=== PATIENT | female | born 1975 | race Caucasian/White ===

== ENCOUNTER 2023-01-29 15:25 | Inpatient (IN) | payer OTHER ==
[~2023-01-29 15:25] MED LIST: Iopamidol-370 76% 500 ML MDV (1 ML CHARGE) ONE
[2023-01-29] MEDS ORDERED: Propofol 1,000 MG/100 ML VIAL IV ONE (15:46)
[2023-01-29 16:10] LABS: Bacteria/HPF None Seen HPF (None Seen); Bilirubin Negative (Negative); Blood, Urine Negative (Negative); Clarity Clear (Clear); Glucose, Urine (Dipstick) 500 mg/dL (Negative); Ketone, Urine Negative (Negative); Leukocyte Negative Leu/uL (Negative); Nitrite Negative (Negative); Protein, Urine (Dipstick) 200 mg/dL (Neg-Trace); RBC/HPF 0-3 HPF (0-3); Specific Gravity, Urine 1.011 (1.002-1.036); Squamous Epithelial 0-3 HPF (0-3); Urobilinogen Normal mg/dL (Less than 2); pH, Urine 7.5 (5.0-9.0)
[2023-01-29 16:15] LABS: Amphetamine Not Detected (NotDetected); Barbiturates Screen Not Detected (NotDetected); Benzodiazepine Screen Not Detected (NotDetected); Cocaine Metabolite Screen Not Detected (NotDetected); Methadone Not Detected (NotDetected); Methamphetamine Not Detected (NotDetected); Opiate Screen Detected (NotDetected); Oxycodone Screen Not Detected (NotDetected); Phencyclidine (PCP) Not Detected (NotDetected); THC/Cannabinoid Screen Not Detected (NotDetected); Tricyclic Screen Not Detected (NotDetected)
[2023-01-29 16:16] LABS: #Eosinphils 0.1 thou/uL (0.0-0.7); #Lymphocytes 0.5 thou/uL (1.20-3.40); #Monocytes 0.9 thou/uL (0.11-0.59); #Neutrophils 10.5 thou/uL (1.40-6.50); %Monocytes 7.7 % (0.0-10.0); %Neutrophils 87.3 % (42.0-75.0); Hemoglobin 10.4 g/dL (12.0-16.0); Mean Corpuscular HGB CONC 34.7 g/dL (32.0-36.0); Mean Corpuscular Hemoglobin 34.7 pg (27.0-31.0); Mean Platelet Volume 9.8 fL (7.4-10.4); Platelet Count 130 10x3/uL (130-400); RBC Distribution Width 14.7 % (11.5-14.5); Red Blood Cell (RBC) Count 2.99 mill/uL (4.20-5.40)
[2023-01-29 16:21] LABS: BHCG - Serum Negative (NEGATIVE); Pregs Control Background? CLEAR/WHITE (CLR/WHITE); Pregs Control Bar Appear? YES (CONTROL BAR)
[2023-01-29 16:27] LABS: INR-International Normal Ratio 1.1; PTT 31.5 sec (22.9-36.1); Prothrombin Time 14.6 sec (12.0-14.7)
[2023-01-29 16:29] LABS: Actual Bicarbonate (HCO3a) 28.5 mEq/L (22-28); Analyzer IN Cardio ER; CO2 Tension 42.5 mmHg (35.0-45.0); Calcium, Ionized (arterial) 1.08 mmol/L (1.12-1.30); Carboxyhemoglobin (COHb) 0.1 gm% (0.0-3.0); Hemoglobin (Hb) 9.8 g/dL (12.0-16.0); Potassium - ABG Lab 3.55 mmol/L (3.70-5.30); pH, Arterial 7.44 (7.35-7.45)
[2023-01-29 16:30] LABS: ALV-art Gradient 138.375 mmHg (0-20); Puncture Site RBA
[2023-01-29 16:36] LABS: ALT (SGPT) Less than 7 U/L (8-55); AST (SGOT) 13 U/L (5-34); Albumin 3.9 g/dL (3.5-5.0); Alkaline Phosphatase 143 U/L (40-110); Anion Gap 15 mmol/L (10-20); BUN (Urea Nitrogen) 28 mg/dL (7.0-18.7); Bilirubin, Total 1.7 mg/dL (0.2-1.2); CK (CPK) 77 U/L (29-168); Calc. Creatinine Clearance 0 mL/min (70-130); Calcium 9.1 mg/dL (7.8-10.44); Carbon Dioxide 28 mmol/L (22-29); Chloride 98 mmol/L (98-107); Estimated GFR 13; Globulin 3.5 g/dL (2.4-3.5); Glucose 155 mg/dL (70-105); Potassium 3.7 mmol/L (3.5-5.1); Protein, Total 7.4 g/dL (6.0-8.3); Sodium 137 mmol/L (136-145)
[2023-01-29] MEDS ORDERED: Aspirin 300 MG Suppository ONE (16:49)
[2023-01-29 16:59] LABS: CKMB 2.1 ng/mL (0-6.6)
[2023-01-29] MEDS ORDERED: Ondansetron PF 4 MG/2 ML Vial IVP PRN (17:31)
[2023-01-29] MEDS ORDERED: HYDROcodone/Acetaminophen 5/325 mg Tablet PO PRN (17:31)
[2023-01-29 17:50] LABS: #Eosinphils 0.1 thou/uL (0.0-0.7); #Lymphocytes 0.5 thou/uL (1.20-3.40); #Monocytes 1.4 thou/uL (0.11-0.59); #Neutrophils 10.7 thou/uL (1.40-6.50); %Basophils 0.2 % (0.0-1.0); %Eosinophils 0.6 % (0.0-10.0); %Lymphocytes 3.6 % (21.0-51.0); %Neutrophils 84.6 % (42.0-75.0); Hemoglobin 10.4 g/dL (12.0-16.0); Mean Corpuscular Hemoglobin 35.4 pg (27.0-31.0); Mean Platelet Volume 9.7 fL (7.4-10.4); Platelet Count 123 10x3/uL (130-400); RBC Distribution Width 14.8 % (11.5-14.5); Red Blood Cell (RBC) Count 2.93 mill/uL (4.20-5.40); White Blood Cell (WBC) Count 12.7 10x3/uL (4.8-10.8)
[2023-01-29 18:10] LABS: ALT (SGPT) Less than 7 U/L (8-55); AST (SGOT) 13 U/L (5-34); Albumin 3.9 g/dL (3.5-5.0); Alkaline Phosphatase 139 U/L (40-110); Anion Gap 15 mmol/L (10-20); BUN (Urea Nitrogen) 27 mg/dL (7.0-18.7); Bilirubin, Total 1.6 mg/dL (0.2-1.2); Calc. Creatinine Clearance 0 mL/min (70-130); Calcium 9.2 mg/dL (7.8-10.44); Carbon Dioxide 28 mmol/L (22-29); Chloride 97 mmol/L (98-107); Estimated GFR 12; Globulin 3.2 g/dL (2.4-3.5); Glucose 146 mg/dL (70-105); Potassium 3.7 mmol/L (3.5-5.1); Protein, Total 7.1 g/dL (6.0-8.3); Sodium 136 mmol/L (136-145)
[2023-01-29] MEDS ORDERED: Piperacillin/Tazobactam 3.375 GM in Sodium Chloride 0.9% 100 ML IVPB SCH ×2 (18:30→22:00)
[2023-01-29] MEDS ORDERED: Dextrose 50% Abboject 50 ML SYRINGE SLOW IVP PRN (18:59)
[2023-01-29] MEDS ORDERED: HumaLOG 300 UNITS/3 ML VIAL SC PRN ×2 (18:59)
[2023-01-29] MEDS ORDERED: Dextrose 5% in Water 1,000 ML IV PRN (18:59)
[2023-01-29] MEDS ORDERED: Ventilator Sedation Protocol 1 EACH FS SCH (19:00)
[2023-01-29 19:09] LABS: Free T4 (Free Thyroxine) 1.02 ng/dL (0.70-1.48)
[2023-01-29] MEDS ORDERED: Nystatin Powder 15 GM BOT TOP PRN (19:15)
[2023-01-29] MEDS ORDERED: DISCONTINUE PREVIOUS NARCOTIC PAIN MEDICATIONS AND BENZODIAZEPINES FS SCH (19:15)
[2023-01-29] MEDS ORDERED: Fentanyl BOLUS 250 ML IVPB PRN (19:15)
[2023-01-29] MEDS ORDERED: Propofol BOLUS 1,000 MG/100 ML VIAL IV PRN (19:15)
[2023-01-29] MEDS ORDERED: Lorazepam 2 MG/ML VIAL SLOW IVP PRN (19:15)
[2023-01-29] MEDS ORDERED: Morphine 2 MG/ML VIAL SLOW IVP PRN (19:15)
[2023-01-29] MEDS ORDERED: Fentanyl CADD 100 ML IV SCH (19:15)
[2023-01-29] MEDS: Heparin 5,000 UNITS/ML VIAL SC SCH (19:51)
[2023-01-29 20:23] LABS: Magnesium 2.1 mg/dL (1.6-2.6)
[2023-01-29] MEDS: Propofol 1,000 MG/100 ML VIAL IV PRN (20:25)
[2023-01-29 20:29] LABS: Troponin I 0.042 ng/mL (< 0.028)
[2023-01-29] MEDS ORDERED: Famotidine/PF 20 mg/2ml Vial SLOW IVP SCH (21:00)
[2023-01-29 23:05] LABS: Troponin I 0.048 ng/mL (< 0.028)
[2023-01-30] MEDS: Propofol 1,000 MG/100 ML VIAL IV PRN ×2 (00:12→05:05)
[2023-01-30 04:22] LABS: #Basophils 0.1 thou/uL (0.0-0.2); #Eosinphils 0.1 thou/uL (0.0-0.7); #Lymphocytes 0.9 thou/uL (1.20-3.40); %Basophils 0.7 % (0.0-1.0); %Eosinophils 1.4 % (0.0-10.0); %Lymphocytes 11.1 % (21.0-51.0); %Monocytes 12.1 % (0.0-10.0); %Neutrophils 74.8 % (42.0-75.0); Hemoglobin 10.2 g/dL (12.0-16.0); Mean Corpuscular HGB CONC 35.2 g/dL (32.0-36.0); Mean Platelet Volume 10.6 fL (7.4-10.4); Platelet Count 81 10x3/uL (130-400); RBC Distribution Width 14.7 % (11.5-14.5); Red Blood Cell (RBC) Count 2.75 mill/uL (4.20-5.40)
[2023-01-30 05:13] LABS: Anisocytosis SLIGHT = 6-15 cells (100X) (0-5/hpf); Band 21 % (5-11); Burr Cells SLIGHT = 2-5 cells (100X) (0-1/hpf); Eosinophils 5 % (0-10); Lymphocytes 6 % (21-51); MDiff Complete? YES; Macrocytosis MODERATE=16-30 cells (100X) (0-5/hpf); Monocytes 5 % (0-10); Neutrophil 63 % (42-75); Ovalocytes SLIGHT = 2-5 cells (100X) (0-1/hpf); Platelet Morphology Comment Appears Decreased; Poikilocytosis SLIGHT = 6-15 cells (100X) (0-5/hpf)
[2023-01-30 08:03] LABS: Calcium 9.6 mg/dL (7.8-10.44); Chloride 99 mmol/L (98-107); Sodium 138 mmol/L (136-145)
[2023-01-30 08:04] LABS: Glucose 75 mg/dL (70-105)
[2023-01-30 08:05] LABS: Anion Gap 22 mmol/L (10-20); Carbon Dioxide 23 mmol/L (22-29)
[2023-01-30 08:07] LABS: Calc. Creatinine Clearance 31 mL/min (70-130); Estimated GFR 10
[2023-01-30 08:08] LABS: BUN (Urea Nitrogen) 35 mg/dL (7.0-18.7)
[2023-01-30 08:16] LABS: Potassium 5.6 mmol/L (3.5-5.1)
[2023-01-30] MEDS ORDERED: Pantoprazole 40 MG VIAL IVP SCH (09:00)
[2023-01-30] MEDS: Heparin 5,000 UNITS/ML VIAL SC SCH ×3 (09:09→21:10)
[2023-01-30] MEDS ORDERED: Clopidogrel Bisulfate 75 MG TAB PO SCH (15:00)
[2023-01-30] MEDS: Acetaminophen 325 MG TAB PO PRN (15:25)
[2023-01-30] MEDS: Famotidine 20 MG TAB PO SCH (21:15)
[2023-01-31] MEDS ORDERED: Losartan 25 MG TAB PO SCH (09:00)
[2023-01-31] MEDS ORDERED: INSULIN DEGLUDEC 100 UNIT/ML SQ SCH (09:00)
[2023-01-31] MEDS ORDERED: Clopidogrel Bisulfate 75 MG TAB PO SCH (09:00)
[2023-01-31] MEDS ORDERED: Non-Formulary Item 1 EACH (Sodium Bicarbonate [Sodium Bicarbonate] 650 MG Tablet) PO SCH (09:00)
[2023-01-31 09:40] LABS: Albumin 3.6 g/dL (3.5-5.0); Anion Gap 19 mmol/L (10-20); BUN (Urea Nitrogen) 41 mg/dL (7.0-18.7); Calc. Creatinine Clearance 25 mL/min (70-130); Calcium 9.2 mg/dL (7.8-10.44); Carbon Dioxide 23 mmol/L (22-29); Chloride 97 mmol/L (98-107); Estimated GFR 8; Glucose 218 mg/dL (70-105); Phosphorus 6.3 mg/dL (2.3-4.7); Potassium 4.1 mmol/L (3.5-5.1); Sodium 135 mmol/L (136-145)
[2023-01-31 09:44] VITALS: BP 159/42
[2023-01-31] MEDS: Sucralfate 1 GM TAB PO SCH ×2 (09:50→21:24)
[2023-01-31] MEDS: Gabapentin 100 MG CAP PO SCH ×3 (09:50→21:24)
[2023-01-31] MEDS: Insulin Glargine 30 UNITS/0.3 ML VIAL SC SCH (09:51)
[2023-01-31] MEDS: Clopidogrel Bisulfate 75 MG TAB PO SCH (09:52)
[2023-01-31] MEDS: Heparin 5,000 UNITS/ML VIAL SC SCH ×3 (09:52→21:24)
[2023-01-31] MEDS ORDERED: Ferric Citrate [Auryxia] 210 MG Tablet PO SCH (12:00)
[2023-01-31] MEDS ORDERED: Non-Formulary Item 1 EACH (Ferric Citrate [Auryxia] 210 MG Tablet) PO SCH (12:00)
[2023-01-31] MEDS: Sevelamer Carbonate 800 MG TAB PO SCH ×2 (13:40→16:12)
[2023-01-31] MEDS: Sodium Bicarbonate Tab 325 MG TAB PO SCH ×3 (13:41→21:24)
[2023-01-31] MEDS: Acetaminophen 325 MG TAB PO PRN (13:44)
[2023-01-31] MEDS ORDERED: Aspirin 81 mg Enteric Coated Tablet PO SCH (16:00)
[2023-01-31] MEDS ORDERED: Non-Formulary Item 1 EACH (Trazodone Hcl [Trazodone Hcl] 100 MG Tablet) PO SCH (21:00)
[2023-01-31] MEDS: Famotidine 20 MG TAB PO SCH (21:24)
[2023-01-31] MEDS: Sacubitril 24MG/Valsartan 26 MG TAB PO SCH (21:24)
[2023-01-31] MEDS: traZODone HCl 50 MG TAB PO SCH (21:25)
[2023-01-31] MEDS: Atorvastatin Calcium 40 MG TAB PO SCH (21:25)
[2023-02-01 04:35] LABS: #Basophils 0.1 thou/uL (0.0-0.2); #Eosinphils 0.3 thou/uL (0.0-0.7); #Lymphocytes 0.9 thou/uL (1.20-3.40); #Monocytes 0.6 thou/uL (0.11-0.59); #Neutrophils 6.1 thou/uL (1.40-6.50); %Basophils 0.9 % (0.0-1.0); %Eosinophils 3.4 % (0.0-10.0); %Monocytes 7.8 % (0.0-10.0); %Neutrophils 76.8 % (42.0-75.0); Hemoglobin 8.7 g/dL (12.0-16.0); Mean Corpuscular HGB CONC 32.9 g/dL (32.0-36.0); Mean Corpuscular Hemoglobin 33.1 pg (27.0-31.0); Mean Platelet Volume 9.9 fL (7.4-10.4); Platelet Count 129 10x3/uL (130-400); RBC Distribution Width 14.4 % (11.5-14.5); Red Blood Cell (RBC) Count 2.64 mill/uL (4.20-5.40); White Blood Cell (WBC) Count 7.9 10x3/uL (4.8-10.8)
[2023-02-01 04:54] LABS: Anion Gap 18 mmol/L (10-20); BUN (Urea Nitrogen) 47 mg/dL (7.0-18.7); Calc. Creatinine Clearance 24 mL/min (70-130); Calcium 8.9 mg/dL (7.8-10.44); Carbon Dioxide 24 mmol/L (22-29); Chloride 99 mmol/L (98-107); Estimated GFR 8; Glucose 77 mg/dL (70-105); Potassium 3.7 mmol/L (3.5-5.1); Sodium 137 mmol/L (136-145)
[2023-02-01] MEDS ORDERED: EPOETIN ALFA-EPBX (ESRD) 10,000 UNIT/ML VIAL SC SCH (08:00)
[2023-02-01 09:37] LABS: HBSAg Index 0.25 S/CO (0-0.99); Hep B Core Total Ab Non-Reactive (NonReactive); Hep B Core Total Index 0.09 S/CO (0-0.79); Hep B Surf Ag Non-Reactive S/CO (NonReactive); Hep C IgG Ab Non-Reactive (NonReactive); Hep C Index 0.07 S/CO (0-0.79)
[2023-02-01 09:38] LABS: HBSAB Concentration 23.27 mIU/mL; Hep B Surf AB Reactive (NonReactive)
[2023-02-01] MEDS: Sucralfate 1 GM TAB PO SCH ×2 (10:00→20:26)
[2023-02-01] MEDS: Carvedilol 3.125 MG TAB PO SCH ×2 (10:00→16:25)
[2023-02-01] MEDS: Clopidogrel Bisulfate 75 MG TAB PO SCH (10:01)
[2023-02-01] MEDS: Sodium Bicarbonate Tab 325 MG TAB PO SCH ×4 (10:01→20:26)
[2023-02-01] MEDS: Gabapentin 100 MG CAP PO SCH ×3 (10:01→20:26)
[2023-02-01] MEDS: Sevelamer Carbonate 800 MG TAB PO SCH ×3 (10:02→16:24)
[2023-02-01] MEDS: Calcitriol 0.25 MCG CAP PO SCH (10:02)
[2023-02-01] MEDS: Aspirin 81 mg Enteric Coated Tablet PO SCH (10:02)
[2023-02-01] MEDS: Insulin Glargine 30 UNITS/0.3 ML VIAL SC SCH (10:02)
[2023-02-01] MEDS: Heparin 5,000 UNITS/ML VIAL SC SCH ×3 (10:03→20:26)
[2023-02-01] MEDS: Acetaminophen 325 MG TAB PO PRN (10:08)
[2023-02-01] MEDS: Sacubitril 24MG/Valsartan 26 MG TAB PO SCH ×2 (16:17→20:26)
[2023-02-01] MEDS: Atorvastatin Calcium 40 MG TAB PO SCH (20:25)
[2023-02-01] MEDS: traZODone HCl 50 MG TAB PO SCH (20:26)
[2023-02-02 04:02] LABS: #Basophils 0.1 thou/uL (0.0-0.2); #Eosinphils 0.3 thou/uL (0.0-0.7); #Lymphocytes 0.8 thou/uL (1.20-3.40); #Monocytes 0.6 thou/uL (0.11-0.59); %Basophils 0.7 % (0.0-1.0); %Eosinophils 3.4 % (0.0-10.0); %Lymphocytes 10.7 % (21.0-51.0); %Monocytes 7.8 % (0.0-10.0); %Neutrophils 77.5 % (42.0-75.0); Hemoglobin 9.4 g/dL (12.0-16.0); Mean Corpuscular HGB CONC 32.5 g/dL (32.0-36.0); Mean Corpuscular Hemoglobin 32.5 pg (27.0-31.0); Mean Corpuscular Volume 99.7 fl (78.0-98.0); Mean Platelet Volume 9.6 fL (7.4-10.4); Platelet Count 151 10x3/uL (130-400); RBC Distribution Width 14.4 % (11.5-14.5); Red Blood Cell (RBC) Count 2.89 mill/uL (4.20-5.40); White Blood Cell (WBC) Count 7.8 10x3/uL (4.8-10.8)
[2023-02-02 04:53] LABS: Albumin 3.7 g/dL (3.5-5.0); Anion Gap 18 mmol/L (10-20); BUN (Urea Nitrogen) 27 mg/dL (7.0-18.7); BUN/Creatinine Ratio 5.76; Calc. Creatinine Clearance 32 mL/min (70-130); Calcium 9.6 mg/dL (7.8-10.44); Carbon Dioxide 24 mmol/L (22-29); Chloride 99 mmol/L (98-107); Estimated GFR 11; Glucose 103 mg/dL (70-105); Iron 53 ug/dL (50-170); Iron Binding Capacity, Total 256 mcg/dL (265-497); Phosphorus 3.9 mg/dL (2.3-4.7); Potassium 3.8 mmol/L (3.5-5.1); Sodium 137 mmol/L (136-145)
[2023-02-02] MEDS: Sodium Bicarbonate Tab 325 MG TAB PO SCH ×4 (09:12→21:34)
[2023-02-02] MEDS: Sevelamer Carbonate 800 MG TAB PO SCH ×3 (09:12→17:10)
[2023-02-02] MEDS: Aspirin 81 mg Enteric Coated Tablet PO SCH (09:12)
[2023-02-02] MEDS: Calcitriol 0.25 MCG CAP PO SCH (09:12)
[2023-02-02] MEDS: Clopidogrel Bisulfate 75 MG TAB PO SCH (09:13)
[2023-02-02] MEDS: Gabapentin 100 MG CAP PO SCH ×3 (09:13→21:35)
[2023-02-02] MEDS: Insulin Glargine 30 UNITS/0.3 ML VIAL SC SCH (09:13)
[2023-02-02] MEDS: Sacubitril 49 MG/Valsartan 51 MG TABLET PO SCH ×2 (09:13→21:36)
[2023-02-02] MEDS: Carvedilol 3.125 MG TAB PO SCH ×2 (09:13→17:10)
[2023-02-02] MEDS: Heparin 5,000 UNITS/ML VIAL SC SCH ×3 (09:14→21:36)
[2023-02-02] MEDS: Sucralfate 1 GM TAB PO SCH ×2 (10:57→21:34)
[2023-02-02] MEDS: Acetaminophen 325 MG TAB PO PRN (13:27)
[2023-02-02 14:39] VITALS: BMI 43.4
[2023-02-02] MEDS ORDERED: Famotidine 20 MG TAB PO SCH (21:00)
[2023-02-02] MEDS: traZODone HCl 50 MG TAB PO SCH (21:35)
[2023-02-02] MEDS: Atorvastatin Calcium 40 MG TAB PO SCH (21:35)
[2023-02-03] MEDS: Gabapentin 100 MG CAP PO SCH ×2 (07:59→14:22)
[2023-02-03] MEDS: Sevelamer Carbonate 800 MG TAB PO SCH ×3 (07:59→13:39)
[2023-02-03] MEDS: Calcitriol 0.25 MCG CAP PO SCH ×2 (07:59→13:39)
[2023-02-03] MEDS: Aspirin 81 mg Enteric Coated Tablet PO SCH ×2 (07:59→13:39)
[2023-02-03] MEDS: Clopidogrel Bisulfate 75 MG TAB PO SCH ×2 (08:00→13:39)
[2023-02-03] MEDS: Insulin Glargine 30 UNITS/0.3 ML VIAL SC SCH (08:16)
[2023-02-03] MEDS: Heparin 5,000 UNITS/ML VIAL SC SCH ×2 (08:16→14:22)
[2023-02-03] MEDS: Sodium Bicarbonate Tab 325 MG TAB PO SCH (11:03)
[2023-02-03] MEDS ORDERED: Heparin 10,000 UNITS/ 10 ML VIAL ONE (11:23)
[2023-02-03] MEDS: Sucralfate 1 GM TAB PO SCH (13:39)
[2023-02-03] MEDS: Sacubitril 49 MG/Valsartan 51 MG TABLET PO SCH (13:42)
[2023-02-03] MEDS: Carvedilol 3.125 MG TAB PO SCH (13:42)
[2023-02-03 15:12] VITALS: TEMP 98.5
== END 2023-02-03 16:21 | disposition home or self-care (01) | DRG 302 ==
LOC: ERS 15:25 → CCU 17:31 → IMCU/EMU 01-30 22:26
PROVIDERS: ADMIT Internal Medicine; ATTEND Internal Medicine
PROC: 5A1935Z Respiratory Ventilation, Less than 24 Consecutive Hours (ICD-10-PCS; principal; 2023-01-29)
PROC: 0D9670Z Drainage of Stomach with Drainage Device, Via Natural or Artificial Opening (ICD-10-PCS; 2023-01-29)
DX: I25.5 Ischemic cardiomyopathy (principal); G93.41 Metabolic encephalopathy; I46.2 Cardiac arrest due to underlying cardiac condition; J96.00 Acute respiratory failure, unspecified whether with hypoxia or hypercapnia; N18.6 End stage renal disease; Z68.41 Body mass index [BMI] 40.0-44.9, adult; N25.81 Secondary hyperparathyroidism of renal origin; E87.1 Hypo-osmolality and hyponatremia; E87.5 Hyperkalemia; E66.01 Morbid (severe) obesity due to excess calories; R77.8 Other specified abnormalities of plasma proteins; E11.22 Type 2 diabetes mellitus with diabetic chronic kidney disease; E11.621 Type 2 diabetes mellitus with foot ulcer; L24.A0 Irritant contact dermatitis due to friction or contact with body fluids, unspecified; L97.519 Non-pressure chronic ulcer of other part of right foot with unspecified severity; E11.51 Type 2 diabetes mellitus with diabetic peripheral angiopathy without gangrene; R00.1 Bradycardia, unspecified; D63.1 Anemia in chronic kidney disease; E83.39 Other disorders of phosphorus metabolism; I25.10 Atherosclerotic heart disease of native coronary artery without angina pectoris; I10 Essential (primary) hypertension; E78.5 Hyperlipidemia, unspecified; Z78.1 Physical restraint status; Z99.2 Dependence on renal dialysis; Z88.5 Allergy status to narcotic agent; Z88.7 Allergy status to serum and vaccine; Z88.8 Allergy status to other drugs, medicaments and biological substances; Z91.09 Other allergy status, other than to drugs and biological substances; Z87.891 Personal history of nicotine dependence; Z95.5 Presence of coronary angioplasty implant and graft
CPT/HCPCS: 36415; 36416; 36600; 51701; 70450; 70496; 70498; 71045; 80048; 80053; 80069; 80306; 81003; 81015; 82140; 82550; 82553; 82728; 82805; 83540; 83550; 83605; 83735; 84145; 84439; 84443; 84481; 84484; 84703; 85025; 85379; 85610; 85730; 86704; 87040; 87086; 90935; 93005; 93306; 93970; 94002; 94003; 94760; 96365; 96366; 97139; 99292; G0257; J1644; J1815; J2543; J2704; J3490; Q5105; Q9967; S0028